=== PATIENT | female | born 1935 | race Caucasian/White ===

== ENCOUNTER → 2016-05-08 | Outpatient (CLI) | payer OTHER ==
[~2016-05-08] MED LIST: ACET65TA OR; ACTO45TA OR; ALBU83IN INH; ASPI81TA45 OR; ASPI81TA85 PO; ATRO0.06 INH; AUGM875T27 PO; AZIT500T2 PO; BENI20TA11 OR; BONIVA PO; CRES5TAB OR; DICL50TA2 PO; DICL75TA PO; DICLOFENAC PO; DONEPEZIL PO; FLEEENE4; FLEEENE4 PR; FLEET; GABA-279 PO; GLIMEPIRIDE PO; HUMA75IN2 SC; HYDR12.55 PO; HYDR25TA6 OR; INSUH10VL SC; INSULANT SC; JANU100T PO; JANUMET PO; KLOR1TAB69 PO; LOSA50TA20 PO; MECL-68 PO; MECL25TA2 OR; MECLOFENAMATE PO; METF500T PO; METO50TA2 PO; MIRALEX PO; MULTCAP PO; NICO14DI3 TD; PAXI40TA OR; PAXI40TA PO; PAXI40TA2 PO; PRED10PA PO; PROA1AER INH; RANI15TA PO; SENO8.6T5 OR; SOMA350T OR; SOMA350T PO; TRAM50TA2 OR; TRAM50TA2 PO; ZANT150T OR; [UNRECOGNIZED DRUG - OTHER] PO
--- NOTE | 2016-05-08 11:48 | REP ---
Clinical: Cough. Rule out pneumonia. Technique: PA and lateral. Comparison: 12/24/2014. Findings: Mediastinum and cardiac silhouette are normal. Lung cruz demonstrate chronic interstitial changes and superimposed basilar atelectasis cannot be excluded. No discrete focal consolidation, effusion, or pneumothorax. Skeletal structures demonstrate age-related osteopenia and degenerative changes. Impression: Chronic changes. Cannot exclude trace basilar atelectasis. Signed by Baldomero Canela MD 05/08/2016 11:40 A
--- NOTE | 2016-05-08 11:49 | REP ---
Clinical: Trauma. Technique: Multiple views of the right hemithorax. Findings: Multiple views of the right hemithorax demonstrates no obvious acute rib fracture or pathology. A 1 cm nodule in the right lower lobe cannot be excluded and may warrant chest CT follow-up. Impression: Normal right ribs. Cannot exclude 1 cm right lower lobe nodule. Chest CT follow-up should be considered. Signed by Baldomero Canela MD 05/08/2016 11:41 A
== END ==
LOC: M RAD 11:13
PROVIDERS: ATTEND Nurse Practitioner Family
DX: R05 Cough (principal)

== ENCOUNTER 2016-06-28 19:52 | Emergency (ER) | payer OTHER ==
[~2016-06-28] VITALS: Ht 162.6 cm; Wt 96.2 kg
[2016-06-28] MEDS ORDERED: OMEP40CA2 PO (20:22)
[2016-06-28] MEDS ORDERED: ALBU83IN INH (20:22)
[2016-06-28] MEDS ORDERED: NOVOINJ3 SC (20:22)
[2016-06-28] MEDS ORDERED: HYDR50TAB PO (20:22)
--- NOTE | 2016-06-28 21:00 | REPUSA ---
HISTORY: Trauma. TECHNIQUE: Multiple thin section helically-acquired axially-displayed and helically acquired coronall y displayed computed tomographic images of the face are obtained from the mandible through the fronta l sinuses, with images obtained at soft tissue and bone window. 2D reformatted images were performed. FINDINGS: Left periorbital swelling/hematoma is noted. Normal bony mineralization. No fractures. Normal orbits. Normal, clear paranasal sinuses. Normal oral and nasal cavities. Normal infratemporal fossa and deep parapharyngeal spaces with normal muscles of mastication. Normal parotid and submandibular glands. IMPRESSION: Left periorbital swelling/hematoma. No fracture. Thank you for your kind referral of this patient
--- NOTE | 2016-06-28 21:00 | REPUSA ---
CLINICAL HISTORY: Trauma. TECHNIQUE: Multiple axial CT images were obtained through the brain without IV contrast material. COMMENTS: Left periorbital swelling/hematoma is noted. There is normal configuration of sella turcica. There are no intra or extra-axial collections. There is no mass effect or midline shift. There is no evidence of hematoma formation. No hydrocephalus is p resent. The ventricles are symmetrical. No abnormal calcifications are present. There is diffuse age-appropriate cerebellar and cerebral atrophy with proportionally dilated ventricl es and cortical sulci. There are bilateral periventricular and subcortical white matter hypolucencies compatible with mild c hronic microvascular disease. Otherwise, no significant focal abnormalities are seen either in the posterior fossa or supratentoria l compartment. IMPRESSION: 1. Age-appropriate cerebellar and cerebral atrophy. 2. Mild chronic microvascular disease. 3. No evidence of acute intracranial pathology. 4. Left periorbital swelling/hematoma. Thank you for your kind referral of this patient.
[2016-06-28 22:03] LABS: BASO % 0.3 % (0.0-1.0); EOS # 0.2 K/mm3 (0.0-0.50); EOS % 1.7 % (0.0-3.0); LARGE UNSTAINED CELL # 0.2 K/mm3 (0.0-0.4); LARGE UNSTAINED CELL % 1.6 % (0.0-4.0); LYMPH # 2.1 K/mm3 (1.5-4.5); LYMPH % 18.3 % (24.0-44.0); MEAN CORPUSCULAR HEMOGLOBIN 30.9 pg (27.0-33.0); MEAN CORPUSCULAR HGB CONC 33.7 g/dl (32.0-36.5); MEAN CORPUSCULAR VOLUME 91.9 fl (80.0-96.0); MONO # 0.4 K/mm3 (0.0-0.8); MONO % 3.2 % (0.0-5.0); NEUTROPHILS # 8.6 K/mm3 (1.8-7.7); NEUTROPHILS % 74.8 % (36.0-66.0); PLATELET COUNT, AUTOMATED 244 k/mm3 (150-450); RED CELL DISTRIBUTION WIDTH 13.7 % (11.5-14.5); WHITE BLOOD COUNT 11.4 K/mm3 (4.0-10.0)
[2016-06-28 22:29] LABS: ALBUMIN 2.8 GM/DL (3.2-5.2); ALBUMIN/GLOBULIN RATIO 0.76 (1.00-1.93); ALKALINE PHOSPHATASE 148 U/L (45-117); ALT/SGPT 14 U/L (12-78); AMYLASE 21 U/L (25-115); ANION GAP 9 MEQ/L (8-16); AST/SGOT 11 U/L (15-37); BILIRUBIN,DIRECT 0.1 MG/DL (0.0-0.2); BILIRUBIN,TOTAL 0.6 MG/DL (0.2-1.0); BLOOD UREA NITROGEN 16 MG/DL (7-18); CARBON DIOXIDE LEVEL 31 MEQ/L (21-32); CHLORIDE LEVEL 96 MEQ/L (98-107); CREATININE FOR GFR 0.94 MG/DL (0.55-1.02); GLOMERULAR FILTRATION RATE > 60.0 (>32); GLUCOSE, FASTING 268 MG/DL (83-110); SODIUM LEVEL 136 MEQ/L (136-145); TOTAL PROTEIN 6.5 GM/DL (6.4-8.2)
[2016-06-28] MEDS ORDERED: BACT800T5 PO (22:42)
[2016-06-28] MEDS ORDERED: BACTRIM 160MG/800MG DS TAB PO ONE (22:45)
[2016-06-28 22:47] VITALS: BP 122/76
== END 2016-06-28 23:10 | disposition home or self-care (01) ==
LOC: EDBD 19:52 → EDSEX 19:52 → M ED 21:31
DX: S00.83XA Contusion of other part of head, initial encounter (principal); W01.198A Fall on same level from slipping, tripping and stumbling with subsequent striking against other object, initial encounter; Y92.002 Bathroom of unspecified non-institutional (private) residence as the place of occurrence of the external cause; Y93.01 Activity, walking, marching and hiking; Y99.8 Other external cause status; N39.0 Urinary tract infection, site not specified; H11.32 Conjunctival hemorrhage, left eye; I10 Essential (primary) hypertension; E11.9 Type 2 diabetes mellitus without complications; J44.9 Chronic obstructive pulmonary disease, unspecified; K21.9 Gastro-esophageal reflux disease without esophagitis; M81.0 Age-related osteoporosis without current pathological fracture; F33.9 Major depressive disorder, recurrent, unspecified; Z79.899 Other long term (current) drug therapy; Z79.82 Long term (current) use of aspirin; Z79.4 Long term (current) use of insulin; Z88.8 Allergy status to other drugs, medicaments and biological substances

== ENCOUNTER → 2016-07-07 | Outpatient (CLI) | payer OTHER ==
[~2016-07-07] MED LIST changes: +BACT800T5 PO; +HYDR50TAB PO; +NOVOINJ3 SC; +OMEP40CA2 PO
--- NOTE | 2016-07-07 16:42 | REP ---
Right hand series: Four views: History: Contusion. Pain and swelling after fall. Findings: Four views right hand demonstrate diffuse osteopenia. No fracture or subluxation is seen. Impression: No fracture noted. Signed by Heath Guzman MD 07/07/2016 07:20 P
--- NOTE | 2016-07-07 16:43 | REP ---
Right wrist series: Four views. History: Contusion of the arm in a fall. Findings: Four views right wrist demonstrate overall decreased mineralization. There is minimal osteoarthritic spurring at the first SNF articulation. No fracture or subluxation is seen. Impression: No fracture noted. Signed by Heath Guzman MD 07/07/2016 07:20 P
--- NOTE | 2016-07-07 16:45 | REP ---
RIGHT ELBOW COMPLETE: 07/07/2016. Comparison right humerus 08/25/2010. Four views of the elbow are provided. There is no evidence of a joint effusion. There is soft tissue calcification about the lateral epicondyle consistent with lateral epicondylitis. No evidence of a joint effusion. There may be a small calcification at the triceps insertion, but no avulsion. Radial head without a fracture; distal humerus without a fracture. The olecranon intact. Impression: 1. No evidence of fracture or joint effusion. There is epicondylitis about the lateral epicondyle. Signed by Teodoro Rai MD 07/07/2016 05:15 P
--- NOTE | 2016-07-07 16:46 | REP ---
Right hip: Two views: History: Contusion. Findings: AP and frog-leg views of the right hip show diffuse osteoporosis. Vascular calcification is seen. The right nayana pelvis as a normal as visualized. No hip fracture is appreciated. Femoral head is smooth and rounded. Impression: No fracture seen. Signed by Heath Guzman MD 07/07/2016 07:20 P
--- NOTE | 2016-07-07 16:46 | REP ---
RIGHT FOREARM SERIES, COMPLETE: 07/07/2016. Clinical history: Pain and swelling after a fall. Forearm contusion. Comparison: Right elbow series and wrist series this date. Findings: The two-views show soft tissue swelling mid to distal forearm, particularly dorsally. No fracture of the radius or ulna. Radial head capitellum align normally. There is calcification at the insertion of the triceps tendon. Epicondylitis with soft tissue calcification about the lateral epicondyle noted. No acute fracture evident. Signed by Teodoro Rai MD 07/07/2016 05:15 P
== END ==
LOC: M LRY 15:20
PROVIDERS: ATTEND Physician Assistant
DX: S40.021A Contusion of right upper arm, initial encounter (principal); S70.01XA Contusion of right hip, initial encounter; S50.811A Abrasion of right forearm, initial encounter; M77.11 Lateral epicondylitis, right elbow; Y92.008 Other place in unspecified non-institutional (private) residence as the place of occurrence of the external cause; Y93.9 Activity, unspecified; Y99.9 Unspecified external cause status; X58.XXXA Exposure to other specified factors, initial encounter
CPT/HCPCS: 36415; 73080; 73090; 73110; 73130; 73502; 80048; G0463

== ENCOUNTER → 2016-07-07 | Outpatient (CLI) | payer OTHER ==
[2016-07-07 20:35] LABS: CALCIUM LEVEL 8.9 MG/DL (8.8-10.2); CREATININE FOR GFR 1.18 MG/DL (0.55-1.02); GLOMERULAR FILTRATION RATE 46.9 (>32)
== END ==
LOC: M LRY 15:13
PROVIDERS: ATTEND Nurse Practitioner Family
DX: I10 Essential (primary) hypertension (principal); E11.9 Type 2 diabetes mellitus without complications

== ENCOUNTER 2016-09-10 11:27 | Inpatient (IN) | payer OTHER ==
[~2016-09-10] VITALS: Ht 162.6 cm; Wt 92.7 kg
[2016-09-10] MEDS ORDERED: OMEP40CA2 PO (11:43)
[2016-09-10] MEDS ORDERED: PROBCAP4 PO (11:43)
[2016-09-10] MEDS ORDERED: NOVOINJ2 SC (11:43)
[2016-09-10] MEDS ORDERED: CIPR500T89 PO (11:43)
--- NOTE | 2016-09-10 12:34 | REP ---
Clinical: Altered mental status . Comparison: 05/08/2016 . Findings: The mediastinum and cardiac silhouette are stable and within normal limits for portable technique. The lung cruz are clear without acute consolidation, effusion, or pneumothorax. Skeletal structures are intact. Impression: Normal portable chest x-ray Signed by Baldomero Canela MD 09/10/2016 12:25 P
[2016-09-10 12:53] LABS: BASO # 0.1 K/mm3 (0.0-0.2); BASO % 0.8 % (0.0-1.0); EOS # 0.1 K/mm3 (0.0-0.50); EOS % 1.3 % (0.0-3.0); LARGE UNSTAINED CELL # 0.1 K/mm3 (0.0-0.4); LARGE UNSTAINED CELL % 1.6 % (0.0-4.0); LYMPH % 22.5 % (24.0-44.0); MEAN CORPUSCULAR HEMOGLOBIN 31.5 pg (27.0-33.0); MEAN CORPUSCULAR HGB CONC 31.7 g/dl (32.0-36.5); MEAN CORPUSCULAR VOLUME 99.5 fl (80.0-96.0); MONO # 0.4 K/mm3 (0.0-0.8); MONO % 5.4 % (0.0-5.0); NEUTROPHILS # 5.6 K/mm3 (1.8-7.7); NEUTROPHILS % 68.4 % (36.0-66.0); PLATELET COUNT, AUTOMATED 317 k/mm3 (150-450); RED CELL DISTRIBUTION WIDTH 13.4 % (11.5-14.5); WHITE BLOOD COUNT 8.2 K/mm3 (4.0-10.0)
[2016-09-10 13:15] LABS: ALBUMIN 2.1 GM/DL (3.2-5.2); ALBUMIN/GLOBULIN RATIO 0.49 (1.00-1.93); BILIRUBIN,DIRECT 0.1 MG/DL (0.0-0.2); BILIRUBIN,TOTAL 0.3 MG/DL (0.2-1.0); CALCIUM LEVEL 8.5 MG/DL (8.8-10.2); CREATININE FOR GFR 1.16 MG/DL (0.55-1.02); GLOMERULAR FILTRATION RATE 47.7 (>32); POTASSIUM SERUM 4.6 MEQ/L (3.5-5.1); TOTAL PROTEIN 6.4 GM/DL (6.4-8.2)
[2016-09-10] MEDS ORDERED: ACETAMINOPHEN TAB 650MG DOSE (2X325MG) PO ONE (13:15)
--- NOTE | 2016-09-10 16:18 | REP ---
Clinical: Abdominal pain. Findings: The right kidney demonstrates edematous enlargement, mild hydronephrosis, and perinephric/periureteral stranding without nephroureterolithiasis or obstructing calculus. Findings suggest pyelonephritis and correlation with physical examination and urinalysis is recommended. The left kidney/ureter and bladder are normal. Liver, spleen, pancreas, and bilateral adrenal glands are normal. The patient is status post cholecystectomy. The enteric system is without obstruction or acute inflammatory process. Colonic diverticula noted without acute diverticulitis. Pelvis demonstrates normal bladder and age-appropriate uterus/adnexa. No ascites. No significant adenopathy. No free air. Atherosclerotic changes to the vasculature noted without aneurysm. Musculoskeletal structures demonstrate degenerative changes without focal osseous abnormality. Lung bases clear. Impression: 1. Changes involving the right kidney as described above most compatible with pyelonephritis. Correlation with urinalysis and physical examination recommended. 2. Scattered diverticula without acute diverticulitis. 3. Chronic changes as described above and no evidence for further acute abdominopelvic pathology. Signed by Baldomero Canela MD 09/10/2016 01:46 P
[2016-09-10] MEDS ORDERED: cefTRIAXone SOD 1 GM in D5W MINI-BAG PLUS 50 ML IV ONE (17:45)
[2016-09-10] MEDS ORDERED: cefTRIAXone SOD 1 GM VIAL (J0696) IM ONE (17:45)
[2016-09-10] MEDS ORDERED: METF500T PO (18:27)
[2016-09-10] MEDS ORDERED: METO-207 PO (18:27)
[2016-09-10] MEDS ORDERED: CIPR250T3 PO (18:27)
[2016-09-10] MEDS ORDERED: BISACODYL 5 MG TAB PO PRN (18:45)
[2016-09-10] MEDS ORDERED: PERCOCET 5MG/325MG TAB PO PRN (18:45)
[2016-09-10] MEDS ORDERED: MORPHINE 2 MG/ML 1ML SYRINGE IV PRN (18:45)
[2016-09-10] MEDS ORDERED: ONDANSETRON 4MG/2ML VIAL (J2405) IV PRN (18:45)
[2016-09-10] MEDS ORDERED: ACETAMINOPHEN TAB 650MG DOSE (2X325MG) PO PRN (18:45)
[2016-09-10] MEDS ORDERED: GLUCOSE 4 GM CHEW TABLET PO PRN (19:00)
[2016-09-10] MEDS ORDERED: DEXTROSE 50% 50 ML SYRINGE IV PRN (19:00)
[2016-09-10] MEDS ORDERED: ALBUTEROL SULFATE 2.5 MG/0.5 ML INH NEB SOLN INH PRN (19:00)
[2016-09-10] MEDS ORDERED: GLUCAGON FOR INJ 1 MG VIAL (J1610) SC PRN (19:00)
[2016-09-10] MEDS ORDERED: METOCLOPRAMIDE INJ 10MG/2ML VIAL (J2765) IV ONE (20:15)
[2016-09-10] MEDS ORDERED: KETOROLAC 30 MG/ML VIAL (J1885) IV ONE (20:15)
[2016-09-10] MEDS ORDERED: diphenhydrAMINE INJ 50MG/ML VIAL (J1200) IV ONE (20:15)
[2016-09-10] MEDS ORDERED: ACETAMINOPHEN 500 MG TAB PO PRN (20:15)
[2016-09-10] MEDS ORDERED: dexameTHASONE 4 MG/ML 1ML VIAL (J1100) IV ONE (20:15)
[2016-09-10] MEDS ORDERED: dexameTHASONE 20 MG/5 ML VIAL (J1100) IV ONE (20:15)
[2016-09-10 20:35] VITALS: BP 146/69
[2016-09-10] MEDS: NovoLOG MIX 70/30 PER UNIT SC SCH (21:00)
[2016-09-10] MEDS: NS 1,000 ML IV SCH (21:01)
[2016-09-10] MEDS: HEPARIN SOD (PORCINE) 5000 UNITS/ML VIAL SQ SCH (21:39)
[2016-09-10] MEDS: GABAPENTIN 100 MG CAP PO SCH (21:40)
[2016-09-10] MEDS: LACTOBACILLUS ACIDOPHILUS CAP (BACID) PO SCH (21:40)
[2016-09-10] MEDS: HumaLOG INSULIN (NovoLOG) PER UNIT SC SCH (21:40)
[2016-09-10] MEDS: METOPROLOL SUCC (TopROL XL) 50MG **XL** TAB PO SCH (21:40)
[2016-09-11] MEDS: cefTRIAXone SOD 1 GM in D5W MINI-BAG PLUS 50 ML IV SCH ×2 (05:56→17:00)
[2016-09-11] MEDS: HEPARIN SOD (PORCINE) 5000 UNITS/ML VIAL SQ SCH ×3 (05:56→21:40)
[2016-09-11 06:00] VITALS: BP 152/80
[2016-09-11 07:58] LABS: BASO % 0.1 % (0.0-1.0); EOS % 0.4 % (0.0-3.0); LARGE UNSTAINED CELL % 0.7 % (0.0-4.0); LYMPH % 17.9 % (24.0-44.0); MEAN CORPUSCULAR HEMOGLOBIN 32.1 pg (27.0-33.0); MEAN CORPUSCULAR VOLUME 100.3 fl (80.0-96.0); MONO # 0.1 K/mm3 (0.0-0.8); MONO % 1.7 % (0.0-5.0); NEUTROPHILS # 4.5 K/mm3 (1.8-7.7); NEUTROPHILS % 79.3 % (36.0-66.0); PLATELET COUNT, AUTOMATED 326 k/mm3 (150-450); RED CELL DISTRIBUTION WIDTH 13.2 % (11.5-14.5); WHITE BLOOD COUNT 5.6 K/mm3 (4.0-10.0)
--- NOTE | 2016-09-11 08:01 | ECGEPIP ---
Stationary ECG Study [facility] - ED Test Date: 2016-09-10 Pat Name: ODELL CARRION Department: Room: - Gender: F Superintendent Job: gypsy : 1935 Requested By: CATE Hester Order Number: [id number] Reading MD: Paris Olivarez Measurements Intervals Leonard Rate: 65 P: 10 TX: 124 QRS: 26 QRSD: 74 T: 48 QT: 371 QTc: 386 Interpretive Statements SINUS RHYTHM NSTTW ABNORMALITY Electronically Signed On 09-11-2016 8:00:55 EDT by Paris Olivarez
[2016-09-11 08:09] LABS: ALBUMIN/GLOBULIN RATIO 0.39 (1.00-1.93); BILIRUBIN,TOTAL 0.2 MG/DL (0.2-1.0); CALCIUM LEVEL 8.3 MG/DL (8.8-10.2); CREATININE FOR GFR 1.02 MG/DL (0.55-1.02); GLOMERULAR FILTRATION RATE 55.4 (>32); MAGNESIUM LEVEL 1.6 MG/DL (1.8-2.4); POTASSIUM SERUM 4.4 MEQ/L (3.5-5.1); TOTAL PROTEIN 7.1 GM/DL (6.4-8.2)
[2016-09-11] MEDS: PARoxetine 20 MG TAB PO SCH (08:23)
[2016-09-11] MEDS: GABAPENTIN 100 MG CAP PO SCH ×2 (08:23→20:34)
[2016-09-11] MEDS: ASPIRIN 81 MG ENTERIC TAB PO SCH (08:23)
[2016-09-11] MEDS: OMEPRAZOLE 20 MG CAP PO SCH (08:23)
[2016-09-11] MEDS: HumaLOG INSULIN (NovoLOG) PER UNIT SC SCH ×4 (08:25→21:41)
[2016-09-11] MEDS: NS 1,000 ML IV SCH (08:25)
[2016-09-11] MEDS: NovoLOG MIX 70/30 PER UNIT SC SCH ×2 (08:25→21:41)
[2016-09-11] MEDS: traMADol 50 MG TAB PO PRN ×2 (08:36→20:35)
[2016-09-11] MEDS ORDERED: PANTOPRAZOLE 40MG INJ (PROTONIX) (C9113) IV SCH (09:00)
[2016-09-11 14:00] VITALS: BP 164/70
[2016-09-11] MEDS ORDERED: MAG SULF 1GM/100ML (MAG RUN) 1 GM in APPROPRIATE DILUENT 1 EA IV ONE (14:00)
--- NOTE | 2016-09-11 15:24 | HPE ---
DATE OF ADMISSION: 09/10/2016 PRIMARY CARE PROVIDER: Conchita Gorman NP CHIEF COMPLAINT: Multiple episodes of diarrhea, abdomen discomfort, and headache. HISTORY OF PRESENT ILLNESS: Ms. Ferrell is an 81-year-old female who was brought to the emergency room (ER) by her daughter and her son-in-law due to experiencing multiple episodes of diarrhea, upset stomach, as well as abdominal discomfort and headache. According to patient's daughter, about 2 weeks ago she developed vomiting and they brought patient to [facility], where she was diagnosed with colitis and urinary tract infection (UTI). Patient was discharged with Cipro; however, since being discharged, patient continued to have diarrhea and her diarrhea became worse as well as headache and nausea. However, patient did not have any episode of vomiting. Patient also has decreased appetite. Only on Thursday, patient ate three times a day; however, since then, patient only eats once or twice a day. Patient denies having fever, chills, or night sweats. Patient also denies hematochezia or melena. However, patient expressed that her diarrhea is liquid and she has not seen any formed stool. PAST MEDICAL HISTORY: 1. Diabetes. 2. Obesity. 3. Hypertension. 4. Anxiety. 5. Depression. 6. Osteoporosis. 7. Osteoarthritis. 8. Chronic obstructive pulmonary disease (COPD). ALLERGIES: QUINOLONES. PAST SURGICAL HISTORY: 1. Left hip replacement 2011. 2. Cholecystectomy. 3. Bilateral carpal tunnel. SOCIAL HISTORY: Patient lives with her daughter and her son-in-law. Patient started smoking at age 12; however, 5 years ago, patient stopped smoking. Patient expressed that she smoked about 1-1/2 pack per day. Several years ago, patient was drinking alcohol occasionally. Patient denies history of illicit drug use. Patient does not have pets. Patient has two daughters and two sons, who are healthy for age. FAMILY HISTORY: Patient had one brother and six sisters who due to colorectal cancer, heart diseases. HOME MEDICATIONS: - albuterol sulfate 2.5 mg inhalation (INH) as needed shortness of breath and cough - aspirin 81 mg by mouth daily - ciprofloxacin 250 mg by mouth twice a day - gabapentin 100 mg by mouth twice a day - insulin aspart 50 units subcutaneously (SC) twice a day - Probiotic one capsule by mouth nightly - losartan potassium 50 mg by mouth daily - metformin 500 mg by mouth twice a day - metoprolol succinate 50 mg by mouth nightly - multivitamins one capsule by mouth daily - omeprazole 40 mg by mouth daily - Paxil 40 mg by mouth daily - tramadol 50 mg by mouth every 6 hours as needed pain REVIEW OF SYSTEMS: GENERAL: Patient denies fever, chills, night sweats, weight loss, weight gain. HEENT: Patient expressed that she has experienced lightheadedness when she stands up from a sitting position. However, patient denies acute vision or hearing changes. Patient also experienced some headache. Patient also denies having problem with chewing food or sinusitis. NECK: Patient denies lumps, bumps, or decreased range of motion of her neck. CHEST: Patient denies palpitation, racing or skipping heartbeat, or chest pain. LUNGS: Patient denies shortness of breath or coughing. ABDOMEN: Patient expressed that she has been experiencing abdominal discomfort. Patient has diarrhea; however, patient denies hematochezia or melena. Patient has been experiencing nausea; however, patient denies vomiting. NEUROLOGICAL: Patient denies history of transient ischemic attack (TIA), cerebrovascular accident (CVA), or seizure-type activities. PHYSICAL EXAMINATION: VITALS: Temperature 97.1, pulse 69, respiratory rate 20, blood pressure 143/65, pulse oximetry 94% on room air. GENERAL APPEARANCE: Patient was lying in bed, in no acute distress. Patient was awake, alert, and oriented to time, place, and person. HEENT: Normocephalic, atraumatic. Pupils are equal, reactive to light. Oral mucosa is moist. NECK: Soft, supple. No lymphadenopathy or thyromegaly. HEART: Regular rate and rhythm. Normal S1, S2. ABDOMEN: Soft. Tender to palpation mostly on the lower abdominal quadrant. Positive bowel sounds in all quadrants. No guarding or rebound. Obese. LUNGS: Clear breath sounds bilaterally. Good air movement. NEUROLOGICAL: Cranial nerves II-XII was intact. No focal deficiencies. EXTREMITIES: Patient has mild pitting edema in both lower extremities. +2 pulses in both lower extremities. Feet were warm. Normal range of motion in both upper and lower extremities. Patient also has normal strength in both upper and lower extremities (5 out of 5). LABORATORY DATA: White blood cells 8.2, red blood cells 4.17, hemoglobin 13.1, hematocrit 41.7, MCV 99.5, MCH 31.5, MCHC 31.7, RDW 13.4, platelet count 317, neutrophil percentage 68.4, lymphocyte percentage 22.5, monocyte percentage 5.4, eosinophil percentage 1.3, basophil percentage 0.8, leukocyte percentage 1.6. Sodium 135, potassium 4.6, chloride 96, carbon dioxide 34, anion gap 5, BUN 11, creatinine 1.16, glomerular filtration rate 47.7, fasting glucose 253, lactic acid 1.7, calcium 8.5, total bilirubin 0.3, direct bilirubin 0.1, AST 9, ALT 14, alkaline phosphatase 236, ammonia 26, total protein 6.4, albumin 2.1. UA: Urine color yellow. Urine appearance hazy. Urine pH 6. Urine specific gravity 1.011. Urine protein negative. Urine glucose 3+. Urine ketones negative. Urine blood 1+. Urine nitrite negative. Urine bilirubin negative. Urine urobilinogen 0.2. Urine leukocyte esterase 3+. Urine white blood cells 95. Urine red blood cells 14. Urine hyaline casts 0. Urine bacteria 2+. Urine squamous epithelial cell 1. Blood culture is pending. IMAGES: Chest x-ray shows normal portable chest x-ray. CT of abdomen and pelvis without contrast shows changes involving the right kidney as possibility for pyelonephritis. Also, scattered diverticula without acute diverticulitis. Chronic changes. However, no evidence of further acute abdominopelvic pathology. ASSESSMENT AND PLAN: 1. Pyelonephritis. Urinalysis (UA) has high possibility for UTI. However, the urine culture is pending at this time. Also, blood culture is pending at this time. Patient is on intravenous (IV) fluid. 2. Hyponatremia. This is possibly secondary to hyper secondary to gastrointestinal (GI) loss versus acute kidney injury. I have started patient on normal saline IV fluid. We will recheck the sodium again tomorrow. 3. Acute kidney injury. This is secondary to dehydration and due to GI loss. Patient is on IV fluid, and we will recheck the urine. We will check the kidney function also. At home, patient is on metformin, losartan, and ciprofloxacin; however, we have stopped this medication due to adverse affect on the kidney, and we will continue monitoring patient for any abnormal symptoms. 4. Diabetes. At this point, we will continue patient on sliding scale, consistent-carbohydrate diet, as well as insulin aspart 50 units SC twice a day. 5. Diabetic neuropathy. Patient is on gabapentin 100 mg by mouth daily. 6. Hypertension. At home, patient was on losartan potassium 50 mg by mouth daily; however, we have held this medication due to kidney function. Patient's blood pressure is stable at this time. We will continue monitoring patient for any abnormal symptoms. We will continue patient on Toprol 50 mg nightly by mouth. 7. Depression. Patient is on Paxil. 8. Osteoarthritis. We will continue patient on home medication, which includes Ultram 50 mg every 6 hours by mouth as needed pain. Patient is also on gabapentin. 9. Deep venous thrombosis (DVT) prophylaxis. We will continue patient on heparin subcutaneously 5000 every 8 hours. 10. Gastroesophageal reflux disease (GERD). Patient is on omeprazole 40 mg by mouth daily. 11. COPD. Will continue patient on breathing treatment and oxygen saturation between 88 to 92; however, at this time, patient is stable. My preceptor for this patient encounter was Dr. Heather Ware. The preceptor was physically present in the building during the encounter and was fully available. As needed, all aspects of the patient interview, examination, medical decision making process, and medical care plan development were reviewed and approved by the preceptor. The preceptor is aware and concurs with the plan as stated in the body of this note and will attest to such by his/her cosignature.
[2016-09-11] MEDS: LACTOBACILLUS ACIDOPHILUS CAP (BACID) PO SCH (20:34)
[2016-09-11 21:40] VITALS: BP 157/82
[2016-09-11] MEDS: METOPROLOL SUCC (TopROL XL) 50MG **XL** TAB PO SCH (21:40)
[2016-09-11 22:00] VITALS: BP 157/82
--- NOTE | 2016-09-11 22:32 | IPN ---
DATE: 09/11/2016 SUBJECTIVE: Ms. Ferrell is an 81-year-old female who was seen and examined at the bedside. Patient denies chest pain, orthopnea, paroxysmal nocturnal dyspnea (PND). Patient also denies nausea, vomiting, diarrhea, or constipation. Patient denies abdominal pain. Patient expressed that she has been making urine, and patient denies dysuria or hematuria. OBJECTIVE: VITAL SIGNS: Temperature 96.9, pulse 70, respiratory rate 18, blood pressure 152/80, pulse oximetry 94 on room air. Total intake 50, total output 200. GENERAL APPEARANCE: Patient was lying in bed in no acute distress. Patient was awake, alert, and oriented to time, place, and person. HEENT: Normocephalic, atraumatic. Pupils are equal and reactive to light. Oral mucosa is moist. NECK: Soft, supple. No lymphadenopathy. No thyromegaly. No jugular venous distention (JVD). HEART: Regular rate and rhythm. Normal S1, S2. ABDOMEN: Soft and nontender. Positive bowel sounds in all quadrants. LUNGS: Clear breath sounds bilaterally. Good air movement. EXTREMITIES: Patient has lower extremity edema, +2 pulses in both lower extremities. Feet are warm. Normal range of motion, both upper and lower extremities. LABORATORY DATA: White blood cells 5.6, red blood cells 4.03, hemoglobin 12.9, hematocrit 40.4, MCV 100.3, MCH 32.1, MCHC 32, RDW 13.2, platelet count 326, neutrophil percentage 79.3, lymphocyte percentage 17.9, monocyte percentage 1.7, eosinophil percentage 0.4, basophil percentage 0.1, leukocyte percentage 0.7. Sodium 137, potassium 4.4, chloride 100, carbon dioxide 29, anion gap 8, BUN 12, creatinine 1.02, glomerular filtration rate 55.4, fasting glucose 202, calcium 88.3, magnesium 1.6. Total bilirubin 0.2, AST 12, ALT 10, alkaline phosphatase 193, total protein 7.1, albumin 2. Blood culture is pending. Urine culture is pending. ASSESSMENT AND PLAN: 1. Pyelonephrosis. At this time, patient is on ceftriaxone. Urinalysis (UA) indicated of urinary tract infection (UTI); however, urine culture is pending. Also blood culture is pending. At this time will continue with the current medication. 2. Acute kidney injury. Patient's renal function is back to baseline. Patient was on intravenous (IV) fluid; however, I have stopped IV fluid. Patient was also on Cipro, losartan, and metformin; however, we held these medications due to abnormal renal function. Will continue to monitor patient for any abnormal symptoms. 3. Hyponatremia. This is possibly hypovolemic in nature. Due to dehydration from gastrointestinal (GI) loss, patient was on normal saline; however, we have stopped this medication at this time. We will continue to monitor patient for any abnormal symptoms. It has resolved. 4. Diabetes. We will continue patient on sliding scale. At home patient was on metformin; have we have stopped this medication due to acute kidney injury (AYLIN). 5. Hypertension. Patient was on losartan; however, we have stopped this medication. Patient's blood pressure is controlled. We will continue patient on metoprolol. 6. Depression. Patient is on Paxil. 7. Gastroesophageal reflux disease (GERD). Patient is on omeprazole. 8 Diabetic neuropathy. Patient is on gabapentin. 9. Chronic obstructive pulmonary disease (COPD). Patient is on breathing treatment. 10. Osteoporosis. Patient is on Ultram. 11. Deep vein thrombosis (DVT) prophylaxis. Patient is on heparin. My preceptor for this patient encounter was Dr. Bettye Strauss. The preceptor was physically present in the building during the encounter and was fully available as needed. All aspects of the patient interview, examination, medical decision making process, and medical care plan development were reviewed and approved by the preceptor. The preceptor is aware and concurs with the plan as stated in the body of this note and will attest to such by his/her co-signature.
[2016-09-12] MEDS: HEPARIN SOD (PORCINE) 5000 UNITS/ML VIAL SQ SCH (05:41)
[2016-09-12] MEDS: cefTRIAXone SOD 1 GM in D5W MINI-BAG PLUS 50 ML IV SCH (05:41)
[2016-09-12 06:00] VITALS: BP 149/67
[2016-09-12 06:27] LABS: BASO % 0.3 % (0.0-1.0); EOS # 0.1 K/mm3 (0.0-0.50); EOS % 1.1 % (0.0-3.0); LARGE UNSTAINED CELL # 0.1 K/mm3 (0.0-0.4); LARGE UNSTAINED CELL % 1.2 % (0.0-4.0); LYMPH # 2.1 K/mm3 (1.5-4.5); LYMPH % 26.3 % (24.0-44.0); MEAN CORPUSCULAR HEMOGLOBIN 31.6 pg (27.0-33.0); MEAN CORPUSCULAR HGB CONC 31.8 g/dl (32.0-36.5); MEAN CORPUSCULAR VOLUME 99.2 fl (80.0-96.0); MONO # 0.4 K/mm3 (0.0-0.8); NEUTROPHILS # 5.3 K/mm3 (1.8-7.7); PLATELET COUNT, AUTOMATED 327 k/mm3 (150-450); RED CELL DISTRIBUTION WIDTH 13.2 % (11.5-14.5)
[2016-09-12 06:58] LABS: ALBUMIN/GLOBULIN RATIO 0.42 (1.00-1.93); BILIRUBIN,TOTAL 0.1 MG/DL (0.2-1.0); CALCIUM LEVEL 8.5 MG/DL (8.8-10.2); CREATININE FOR GFR 1.01 MG/DL (0.55-1.02); POTASSIUM SERUM 4.3 MEQ/L (3.5-5.1); TOTAL PROTEIN 6.8 GM/DL (6.4-8.2)
[2016-09-12] MEDS: HumaLOG INSULIN (NovoLOG) PER UNIT SC SCH ×2 (07:30→12:15)
[2016-09-12] MEDS: GABAPENTIN 100 MG CAP PO SCH (08:57)
[2016-09-12] MEDS: OMEPRAZOLE 20 MG CAP PO SCH (08:57)
[2016-09-12] MEDS: traMADol 50 MG TAB PO PRN (08:57)
[2016-09-12] MEDS: ASPIRIN 81 MG ENTERIC TAB PO SCH (08:58)
[2016-09-12] MEDS: PARoxetine 20 MG TAB PO SCH (08:58)
[2016-09-12] MEDS: NovoLOG MIX 70/30 PER UNIT SC SCH (09:00)
[2016-09-12] MEDS ORDERED: DOXY-278 PO (11:53)
--- NOTE | 2016-09-15 07:02 | DSES ---
DATE OF ADMISSION: 09/10/2016 DATE OF DISCHARGE: 09/12/2016 PRIMARY CARE PHYSICIAN: Conchita Wild CONSULTANTS: None. PROCEDURES: None. DISCHARGE MEDICATIONS: - doxycycline 100 mg by mouth every 12 hours for 10 days - albuterol 2.5 mg INH as needed shortness of breath and cough - aspirin 81 mg by mouth daily - gabapentin 100 mg by mouth twice a day - insulin aspart 50 units subcutaneous twice a day - Probiotic one capsule by mouth at bedtime - losartan potassium 50 mg by mouth daily - metformin 500 mg by mouth twice a day - metoprolol succinate 50 mg by mouth at bedtime - multivitamin one capsule by mouth daily - omeprazole 40 mg by mouth daily - Paxil 40 mg by mouth daily - tramadol HCl 50 mg by mouth every 6 hours as needed pain HOSPITAL COURSE: Ms. Ferrell is an 81-year-old female who was admitted to the emergency room (ER) due to multiple episodes of diarrhea and abdominal pain. The patient went to [facility] two weeks ago due to vomiting and the patient was diagnosed with colitis and urinary tract infection and discharged with Cipro. At the time of admission, we did a CT which indicated pyelonephritis. Also, urinalysis (UA) was indicative of urinary tract infection (UTI). Therefore, the patient was started on ceftriaxone. Also, the patient was started on IV fluid due to elevated creatinine level. The patient was on consistent carbohydrates and sliding scale with home insulin. During the hospitalization, the patient did not have any overnight issues. The patient became more stable. At the time of discharge, the patient was medically stable and the patient was discharged home with doxycycline 100 mg by mouth every 12 hours and it was requested that the patient follow with the primary care physician. DISCHARGE DISPOSITION: Home. FOLLOWUP: Please follow up with primary care within one week. ACTIVITY: Activity as tolerated by patient. My preceptor for this patient encounter was Dr. Strauss. The preceptor was physically present in the building during the encounter and was fully available. As needed, all aspects of the patient interview, examination, medical decision making process, and medical care plan development were reviewed and approved by the preceptor. The preceptor is aware and concurs with the plan as stated in the body of this note and will attest to such by his/her cosignature.
== END 2016-09-12 13:32 | disposition home or self-care (01) | DRG 690 ==
LOC: M ED 14:12 → M ED INP 19:17 → M MSPAV 20:26
PROVIDERS: ADMIT Internal Medicine Nephrology; ATTEND Internal Medicine
DX: N10 Acute pyelonephritis (principal); E87.1 Hypo-osmolality and hyponatremia; Z79.82 Long term (current) use of aspirin; Z79.899 Other long term (current) drug therapy; E11.40 Type 2 diabetes mellitus with diabetic neuropathy, unspecified; F41.9 Anxiety disorder, unspecified; F32.9 Major depressive disorder, single episode, unspecified; E66.9 Obesity, unspecified; J44.9 Chronic obstructive pulmonary disease, unspecified; M19.90 Unspecified osteoarthritis, unspecified site; I10 Essential (primary) hypertension; M81.0 Age-related osteoporosis without current pathological fracture; Z88.8 Allergy status to other drugs, medicaments and biological substances; Z87.891 Personal history of nicotine dependence; N17.9 Acute kidney failure, unspecified; K21.9 Gastro-esophageal reflux disease without esophagitis

== ENCOUNTER 2016-09-14 16:52 | Inpatient (IN) | payer OTHER ==
[~2016-09-14] VITALS: Ht 162.6 cm; Wt 91.9 kg
[~2016-09-14 16:52] MED LIST changes: +CIPR250T3 PO; +CIPR500T89 PO; +DOXY-278 PO; +METO-207 PO; +NOVOINJ2 SC; +PROBCAP4 PO
[2016-09-14] MEDS ORDERED: NS 1,000 ML IV ONE (18:00)
[2016-09-14 18:57] LABS: BASO % 0.5 % (0.0-1.0); EOS # 0.2 K/mm3 (0.0-0.50); EOS % 2.3 % (0.0-3.0); LARGE UNSTAINED CELL # 0.1 K/mm3 (0.0-0.4); LARGE UNSTAINED CELL % 1.3 % (0.0-4.0); LYMPH # 1.9 K/mm3 (1.5-4.5); LYMPH % 26.5 % (24.0-44.0); MEAN CORPUSCULAR HEMOGLOBIN 31.3 pg (27.0-33.0); MEAN CORPUSCULAR VOLUME 97.9 fl (80.0-96.0); MONO # 0.4 K/mm3 (0.0-0.8); MONO % 5.8 % (0.0-5.0); NEUTROPHILS # 4.2 K/mm3 (1.8-7.7); NEUTROPHILS % 63.6 % (36.0-66.0); PLATELET COUNT, AUTOMATED 243 k/mm3 (150-450); RED CELL DISTRIBUTION WIDTH 13.4 % (11.5-14.5); WHITE BLOOD COUNT 6.6 K/mm3 (4.0-10.0)
[2016-09-14 19:03] LABS: INR 1.05
[2016-09-14 19:20] LABS: ALBUMIN 2.4 GM/DL (3.2-5.2); ALBUMIN/GLOBULIN RATIO 0.48 (1.00-1.93); ALKALINE PHOSPHATASE 220 U/L (45-117); ALT/SGPT 28 U/L (12-78); ANION GAP 6 MEQ/L (8-16); AST/SGOT 24 U/L (15-37); BILIRUBIN,DIRECT 0.1 MG/DL (0.0-0.2); BILIRUBIN,TOTAL 0.4 MG/DL (0.2-1.0); BLOOD UREA NITROGEN 14 MG/DL (7-18); CALCIUM LEVEL 8.5 MG/DL (8.8-10.2); CARBON DIOXIDE LEVEL 33 MEQ/L (21-32); CHLORIDE LEVEL 91 MEQ/L (98-107); CREATININE FOR GFR 1.13 MG/DL (0.55-1.02); GLOMERULAR FILTRATION RATE 49.2 (>32); GLUCOSE, FASTING 372 MG/DL (83-110); POTASSIUM SERUM 4.2 MEQ/L (3.5-5.1); SODIUM LEVEL 130 MEQ/L (136-145); TOTAL PROTEIN 7.4 GM/DL (6.4-8.2)
--- NOTE | 2016-09-14 20:10 | ECGEPIP ---
Stationary ECG Study [facility] - ED Test Date: 2016-09-14 Pat Name: ODELL CARRION Department: Room: - Gender: F [employer] Fitter: AURELIA : 1935 Requested By: Stone Huertas PA-C Order Number: [id number] Reading MD: Paris Olivarez Measurements Intervals [place] Rate: 69 P: 56 NH: 145 QRS: 14 QRSD: 80 T: 51 QT: 378 QTc: 405 Interpretive Statements SINUS RHYTHM NSTTW ABNORMALITY SIMILAR 09/10/16 Electronically Signed On 09-14-2016 20:10:33 EDT by Paris Olivarez
[2016-09-14] MEDS ORDERED: ONDANSETRON 4MG/2ML VIAL (J2405) IV PRN (20:45)
[2016-09-14] MEDS ORDERED: DEXTROSE 50% 50 ML SYRINGE IV PRN (21:00)
[2016-09-14] MEDS ORDERED: GLUCOSE 4 GM CHEW TABLET PO PRN (21:00)
[2016-09-14] MEDS ORDERED: GLUCAGON FOR INJ 1 MG VIAL (J1610) SC PRN (21:00)
[2016-09-14] MEDS ORDERED: CETI10TA PO (21:09)
[2016-09-14] MEDS ORDERED: DOXY100C PO (21:09)
[2016-09-14] MEDS ORDERED: ALBU17IN INH (21:09)
[2016-09-14] MEDS ORDERED: VITMTA PO (21:11)
[2016-09-14] MEDS ORDERED: BACITAB3 PO (21:11)
[2016-09-14] MEDS ORDERED: HYDR50TAB PO (21:13)
[2016-09-14] MEDS ORDERED: VITA100072 PO (21:13)
[2016-09-14] MEDS ORDERED: FERR325T3 PO (21:13)
[2016-09-14] MEDS ORDERED: DICL75TA PO (21:14)
[2016-09-14] MEDS ORDERED: ALBU83IN INH (21:15)
[2016-09-14] MEDS ORDERED: METOPROLOL TART 50 MG TAB PO ONE (21:45)
[2016-09-14] MEDS ORDERED: PANTOPRAZOLE 40MG INJ (PROTONIX) (C9113) IV ONE (21:45)
[2016-09-14] MEDS ORDERED: ALBUTEROL 90 MCG/ACT 8GM HFA INHALER INH PRN (22:00)
[2016-09-14] MEDS ORDERED: cloNIDine 0.2 MG TAB PO ONE (22:00)
[2016-09-14] MEDS ORDERED: traMADol 50 MG TAB PO PRN (22:00)
--- NOTE | 2016-09-14 22:20 | REPUSA ---
CT of the abdomen and pelvis without contrast Clinical statement: Pain. Technique: Multiple axial CT images were obtained from the base of the lungs to the floor of the pelv is utilizing 5 mm axial slices without administration of contrast. Coronal and sagittal reconstructio ns were also obtained. Comparison: 09/10/2016. Findings: Chest: The visualized lung bases are clear. Abdomen: The right kidney is enlarged, edematous, and inflamed, with perinephric inflammatory changes noted. There is mild right-sided hydronephrosis. There is no evidence of nephrolithiasis. The liver, spleen, pancreas, gallbladder and adrenal glands are unremarkable. The aorta demonstrates normal mary iber and contour. There is no abdominal lymphadenopathy or ascites. Pelvis: The bowel is unremarkable, with no obstructive or inflammatory changes. The appendix is radha l. The urinary bladder is within normal limits. There is no pelvic lymphadenopathy or ascites. The ot her pelvic structures appear unremarkable. Bones: There are no suspicious osseous abnormalities seen. Open reduction internal fixation of the pr oximal left femur is intact. Impression: 1. Worsening edema and inflammation of the right kidney. Stable mild right-sided hydronephrosis. Find ings are suspicious for pyelonephritis. 2. No obstructive or inflammatory bowel changes. 3. The other CT findings are stable.
[2016-09-14] MEDS ORDERED: traMADol 50 MG TAB PO ONE (23:00)
[2016-09-14] MEDS: NITROGLYCERIN 2% OINT 1 GM *U/D* PKT TOP SCH (23:00)
[2016-09-14 23:10] VITALS: BP 133/59
--- NOTE | 2016-09-14 23:12 | HPE ---
DATE OF ADMISSION: 09/14/2016 PRIMARY CARE PROVIDER: Conchita Wild. INPATIENT HOSPITALIST ATTENDING: Dr. Dhaval Umanzor. CHIEF COMPLAINT: Diarrhea, abdominal pain, intractable nausea and vomiting. HISTORY OF PRESENT ILLNESS: This is an 81-year-old female with a history significant for diabetes, hypertension, obesity, anxiety, depression, osteoporosis, osteoarthritis, chronic obstructive pulmonary disease (COPD), recently diagnosed and treated for pyelonephritis and urinary tract infection, colitis at [facility] and [facility] with previous admission on 09/10, discharge on 09/12/2016. The patient continues to have diarrhea about 3-4 times a day, twice at night. She had been having diarrhea since 08/24/2016, initially presented to [facility] Emergency Room where she was admitted. At that time, she was profoundly weak, unable to get off her wheelchair, requiring assistance from the daughter and son-in-law. The patient was admitted to [facility] from 08/24 and stayed for two weeks and treated for colitis. She was discharged the day before Mother's Day and did well at home for two days. She then developed further diarrhea without fever or chills, some abdominal pain and occasional nausea and vomiting. She was seen in the emergency room at [facility] and was admitted for the same complaint. At that time, CT abdomen and pelvis on 09/10 showed pyelonephritis and chronic changes with colonic diverticula without acute diverticulitis. She was admitted subsequently on 09/10 to 09/12, and was given doxycycline for urinary tract infection. Urine culture on 09/10 showed no growth. Since discharge, the patient has been on doxycycline at home, completed two days before presenting back today on 09/14/2016, with persistent symptoms, nausea and vomiting today, 3-4 times daily diarrhea, watery in nature, nonbloody, non-mucousy without fever or chills, with profound weakness. She had been complaining of feeling cold and sleepy at home, prompting the family to bring her back to [facility] for evaluation and potential admission. The patient has not had any weight loss. Last evening, she was able to eat her cheeseburger which was grilled, as well as a little bit of ice cream. They did not know that she was having trouble eating her ice cream. Usually she is a ravenous eater with a good appetite. She was taking her time with the ice cream yesterday and family felt that this was beginning to disturb her abdomen. This morning, she ate half of her breakfast. She ate half her food. She asked for a peanut butter sandwich around lunch time, was able to tolerate this, but developed persistent diarrhea. She has had no prior colonoscopy in the past. No recent travel. No well water at home, and no sick contacts. The patient has been hospitalized twice, one at [facility] in August 24, and another at [facility] in early August. The patient is at high risk for Clostridium (C.) difficile colitis. She was having a white count of 12,000 at [facility], but denies any dysuria, urgency or frequency. No documented fevers or chills. No costovertebral angle tenderness. No dysuria. Denies any hematuria or foul-smelling urine. Again, urine culture on the previous admission on 09/[address] abdomen and pelvis that was performed on 09/10 showed right kidney pyelonephritis. No acute diverticulitis, and chronic changes. She currently has acute kidney injury with a creatinine 1.13, metabolic alkalosis, and hyponatremia, sodium level 130, admitted for dehydration, acute kidney injury secondary to diarrhea. The patient also complains of headache in the occipital area. No chest pain, pressure, tightness, shortness of breath, palpitations, lightheadedness, or near syncope. That has been ongoing since the diarrhea has started. PAST MEDICAL HISTORY: 1. Persistent diarrhea since August 24, 2016. 2. Pyelonephritis. 3. Urinary tract infection. 4. Diabetes. 5. Obesity. 6. Hypertension. 7. Anxiety/depression. 8. Osteoporosis. 9. Osteoarthritis. 10. Chronic obstructive pulmonary disease (COPD). 11. Colitis treated at [facility], August 24, for two weeks. ALLERGIES: QUINOLONES. PAST SURGICAL HISTORY: 1. Left hip replacement 2011. 2. Cholecystectomy. 3. Bilateral carpal tunnel placement. SOCIAL HISTORY: Lives with her daughter and son-in-law. Started smoking at the age of 12. Five years ago quit smoking. Smoked one to 1-1/2 packs of cigarettes. Occasional alcohol use. Denies illicit drug use. No pets. Two daughters, two sons. FAMILY HISTORY: One brother and six sisters who have due to colorectal cancer and heart disease. HOME MEDICATIONS: - albuterol 2.5 mg twice a day as needed, two puffs every four hours as needed for shortness of breath - aspirin 81 mg daily - cetirizine 10 mg daily - vitamin B 12 1000 mcg daily - doxycycline 100 mg every 12 hours - ferrous sulfate 325 daily - gabapentin 100 twice a day - hydrochlorothiazide 50 mg daily - NovoLog mix 70/30 50 subcutaneous twice a day - Bacid one tablet daily - losartan 50 mg daily - metformin twice a day - metoprolol 50 mg daily at bedtime - multivitamin one tablet daily - Prilosec 40 mg daily - Paxil 40 mg daily - tramadol 50 mg every six hours as needed for pain PHYSICAL EXAMINATION: VITAL SIGNS: Temperature 96.6, pulse 71, respiratory rate 18, blood pressure 184/79, 94% on room air. GENERAL: Awake, alert, and oriented times three. HEENT: Pupils equal, round, and reactive to light and accommodation. Extraocular muscles are intact. Normocephalic, atraumatic. Dry mucous membranes. No jugular venous distention. No thyromegaly. No cervical lymphadenopathy or pharyngeal erythema. NECK: Supple. Full range of motion. LUNGS: Clear to auscultation. No wheezes, rales, or rhonchi. Air entry is equal bilaterally. HEART: S1, S2. Sinus rhythm. No murmurs, rubs, or gallops. ABDOMEN: Soft. Slightly tender bilateral lower quadrants. Positive bowel sounds times four quadrants. No rebound, guarding. The patient has no costovertebral angle tenderness. Obese abdomen. EXTREMITIES: Mild pitting edema. Trace bilateral lower extremities. 2+ pulses lower extremities. 5/5 motor strength on four extremities. LABORATORY DATA: White count 6.6, hemoglobin 13, hematocrit 43, platelet count 243. Sodium 130, potassium 4.2, chloride 91, bicarbonate 33, BUN 14, creatinine 1.13, glucose of 372, lactic acid 1.3, calcium 8.5, total bilirubin 0.4, direct bilirubin 0.1, AST 24, ALT 28, alkaline phosphatase 220. Total CK of 25, troponin less than 0.02. Albumin of 2.4, lipase 108. ASSESSMENT AND PLAN: This is an 81-year-old female who has been having diarrhea since August 24, treated for colitis at [facility], and re-presents to [facility] with recent admission on 09/10 to 09/12, treated for pyelonephritis with doxycycline. Urine culture is negative. Now re-presents with 3-4 day history per day of diarrhea, non-mucousy, nonbloody, watery diarrhea and two episodes of diarrhea nightly since 08/24, with profound dehydration, acute kidney injury. No fever or chills. Some bilateral lower quadrant abdominal pain, without dysuria, urgency, frequency. The patient had prior history of pyelonephritis treated with doxycycline. Currently denies dysuria, urgency, frequency, fever, chills or flank pain. No hematuria at home. Prior history of type 2 diabetes, chronic obstructive pulmonary disease (COPD), hypertension, anxiety, depression, osteoporosis, osteoarthritis, admitted for persistent diarrhea, acute kidney injury secondary to dehydration from volume loss. The patient will be admitted as an inpatient for two midnights, assigned to Dr. Dhaval Umanzor for the following issues. IMPRESSION: 1. Diarrhea. The patient has had chronic diarrhea from 08/24 until now. She has been treated for colitis at [facility] with two weeks of antibiotics and was readmitted for pyelonephritis, treated with doxycycline for about four days, who now presents with persistent diarrhea 5-6 during the day, and 2-3 times nightly. No weight loss. The patient denies any fever or chills at home. Has bilateral lower quadrant abdominal pain. No urinary tract symptoms. Denies fever , chills. No costovertebral angle tenderness during exam. Denies dysuria, urgency, frequency. Readmitted for persistent diarrhea, acute kidney injury and generalized weakness secondary to persistent volume loss. At this time, the patient will be checked with a gastrointestinal (GI) panel. She is at high risk of Clostridium (C.) difficile colitis due to recurrent readmissions to [facility] where she spent two weeks, and [facility] where she spent two days. The patient has never had a colonoscopy in the past, and if there is a negative GI panel, she may be started on Lomotil to decrease her volume loss and decrease electrolyte loss. Replace potassium and magnesium as needed, intravenous fluids for now, nothing by mouth status. She may need a colonoscopy to rule out microscopic or collagenous colitis if infectious diarrhea is negative. Workup for inflammatory bowel disease as well and check anti- cerevisiae antibody, anti-Saccharomyces cerevisiae antibody, antinuclear antibody test (ALMA), and W-dfrt-tnyqtijcmv cytoplasmic antibodies (P-ANCA). 2. Full supportive care for now. 3. History of pyelonephritis. Urine culture negative, but treated for urinary tract infection. Was discharged on doxycycline. The patient had been on antibiotics for colitis from [facility] since 08/24. Completed a two-week course, and recently, 09/10 to 09/12, completed two days of antibiotics at [facility] and two more days at home. Due to no complaints of dysuria, urgency, frequency, fever, chills or flank pain, the patient's antibiotics will be discontinued as the urine culture was negative during the previous admission. Monitor for ongoing symptoms and resume antibiotics if urine culture should be positive and patient develops symptoms. 4. Hyponatremia, most likely secondary to dehydration. Intravenous (IV) fluid hydration with normal saline. Repeat metabolic panel in the morning. 5. Acute kidney injury secondary to volume loss from persistent diarrhea. Continue with IV fluid hydration. Recheck numbers in the morning. 6. Headache. Most likely secondary to uncontrolled blood pressure. The patient is currently nothing by mouth. Will try to continue her metoprolol 50 mg if oral intake is still tolerated. If it is not, then we will given nitroglycerin paste topically or Catapres for blood pressure control while she is experiencing abdominal pain and persistent nausea and vomiting. At this time due to acute kidney injury, we will withhold the patient's hydrochlorothiazide and angiotension-converting enzyme (AGUILAR) inhibitor. 7. History of chronic obstructive pulmonary disease (COPD). No active wheezing at the bedside. Appears to be compensated. She is awake, alert, oriented times three. Does not appear to be lethargic or obtunded. No CO2 retention on clinical examination. Therefore, will continue with as needed nebulizer treatments. 8. Type 2 diabetes. Currently nothing by mouth with hypoglycemic protocol. Sliding scale every six hours. Will hold off on the patient's insulin until she resumes an oral intake. If the glucose is over 300, will restart 70/30 insulin at half the dose. Discontinue metformin for now while the patient has acute kidney injury. 9. Reflux. Will hold patient's Prilosec until she resumes oral intake. 10. Depression. Continue paroxetine once oral intake is improved. 11. Iron-deficiency anemia. Will continue ferrous sulfate once oral intake is resumed. 12. History of pyelonephritis. Currently asymptomatic. Will discontinue doxycycline unless symptoms resume. 13. Mild hydronephrosis. Bladder scan, Oliva to gravity. If significant residual , may benefit from Oliva catheter placement. If worsening creatinine despite fluid hydration and discontinuation of nephrotoxins, may need urology input. 14. Deep venous thrombosis (DVT) prophylaxis with Lovenox renal dosing. Addendum: per the family, patient,daughter and son-in-law will be relocating out of state in October: Medical records to be forwarded to patient's new physician at hospital discharge. Patient will be signed out to Dr. Dhaval Umanzor at 0700 09/14/16 0700 am. JOSEE
[2016-09-15] MEDS: GABAPENTIN 100 MG CAP PO SCH ×3 (00:06→20:43)
[2016-09-15] MEDS: NS 1,000 ML IV SCH ×2 (00:07→10:32)
[2016-09-15] MEDS: NITROGLYCERIN 2% OINT 1 GM *U/D* PKT TOP SCH ×3 (02:39→23:53)
[2016-09-15 06:00] VITALS: BP 160/68
[2016-09-15] MEDS: HumaLOG INSULIN (NovoLOG) PER UNIT SC SCH ×4 (06:34→18:36)
[2016-09-15] MEDS: cloNIDine 0.1 MG TAB PO SCH ×4 (06:34→23:32)
[2016-09-15 06:43] LABS: BASO % 0.5 % (0.0-1.0); EOS # 0.2 K/mm3 (0.0-0.50); EOS % 3.1 % (0.0-3.0); LARGE UNSTAINED CELL # 0.1 K/mm3 (0.0-0.4); LARGE UNSTAINED CELL % 1.3 % (0.0-4.0); LYMPH # 1.5 K/mm3 (1.5-4.5); LYMPH % 22.8 % (24.0-44.0); MEAN CORPUSCULAR HEMOGLOBIN 31.8 pg (27.0-33.0); MEAN CORPUSCULAR HGB CONC 32.8 g/dl (32.0-36.5); MEAN CORPUSCULAR VOLUME 96.9 fl (80.0-96.0); MONO # 0.5 K/mm3 (0.0-0.8); MONO % 7.4 % (0.0-5.0); NEUTROPHILS % 64.9 % (36.0-66.0); PLATELET COUNT, AUTOMATED 246 k/mm3 (150-450); RED CELL DISTRIBUTION WIDTH 13.4 % (11.5-14.5); WHITE BLOOD COUNT 6.1 K/mm3 (4.0-10.0)
[2016-09-15 07:08] LABS: CALCIUM LEVEL 8.5 MG/DL (8.8-10.2); CREATININE FOR GFR 1.01 MG/DL (0.55-1.02); POTASSIUM SERUM 4.1 MEQ/L (3.5-5.1)
[2016-09-15] MEDS ORDERED: PANTOPRAZOLE 40MG TAB (PROTONIX) PO SCH (09:00)
[2016-09-15] MEDS: PANTOPRAZOLE 40MG INJ (PROTONIX) (C9113) IV SCH (09:06)
[2016-09-15] MEDS: MULTIVITAMINS/MINERALS THERAP 1 TAB PO SCH (09:06)
[2016-09-15] MEDS: CETIRIZINE (ZyrTEC) 10 MG TAB PO SCH (09:06)
[2016-09-15] MEDS: LACTOBACILLUS ACIDOPHILUS CAP (BACID) PO SCH ×2 (09:07→20:43)
[2016-09-15] MEDS: FERROUS SULFATE 325MG TAB PO SCH (09:07)
[2016-09-15] MEDS: ASPIRIN 81 MG ENTERIC TAB PO SCH (09:07)
[2016-09-15] MEDS: PARoxetine 20 MG TAB PO SCH (09:08)
[2016-09-15] MEDS: CYANOCOBALAMIN 500 MCG TAB PO SCH (09:08)
[2016-09-15] MEDS ORDERED: LOPERAMIDE 2 MG CAP PO ONE (11:30)
[2016-09-15] MEDS ORDERED: LOPERAMIDE 2 MG CAP PO PRN (11:30)
[2016-09-15 14:00] VITALS: BP 112/56
--- NOTE | 2016-09-15 16:12 | IPNPDOC ---
Text Note Date of Service The patient was seen on 09/15/16. NOTE Subjective: Pt states she had one episode of watery diarrhea last night. No N/V/ Abd pain. Wants to eat. Objective: Vitals: (see below) General: No acute distress, laying comfortably in bed. HEENT: Moist mucous membranes. Neck: No JVD or lymphadenopathy Cardiac: RRR, No murmurs Pulm: Clear to auscultation b/l. No wheezing, rhonchi Abd: NT/ND + BS Ext: No edema or cyanosis Labs (see below) Images: Assessment/Plan 1. Persistent Diarrhea - ? related to Abx, which have been d/c. Treated for colitis/UTI in [place]. No abd pain/N/V/dysuria. Treated again for Pyelo on recent admission. Since patient asymptomatic, will hold off on Abx for now. Culture sent. ? microscopic workup vs IBD - will eventually need colonscopy. GI Panel negative. Imodium for now. Advance diet. 2. Hyponatremia - likely hypovolemic 2/2 diarrhea. improved on IVF. 3.AYLIN 2/2 pre-renal improved. 4. COPD - stable on nebs. 5. DM - cont insulin. Metformin d/c. 6. Depression on SSRI 7. Mild hydronephrosis - cont to monitor. If renal function worsens, consider gutierrez/urology consult, otherwise outpt f/u. DVT prophy: Lovenox VS,Fishbone, I+O VS, Fishbone, I+O Laboratory Tests 09/14/16 18:25 Red Blood Count 4.40, Mean Corpuscular Volume 97.9 H, Mean Corpuscular Hemoglobin 31.3, Mean Corpuscular Hemoglobin Concent 32.0, Red Cell Distribution Width 13.4, Neutrophils (%) (Auto) 63.6, Lymphocytes (%) (Auto) 26.5, Monocytes (%) (Auto) 5.8 H, Eosinophils (%) (Auto) 2.3, Basophils (%) ( Auto) 0.5, Neutrophils # (Auto) 4.2, Lymphocytes # (Auto) 1.9, Monocytes # (Auto ) 0.4, Eosinophils # (Auto) 0.2, Basophils # (Auto) 0.0 09/15/16 06:25 Red Blood Count 4.03, Mean Corpuscular Volume 96.9 H, Mean Corpuscular Hemoglobin 31.8, Mean Corpuscular Hemoglobin Concent 32.8, Red Cell Distribution Width 13.4, Neutrophils (%) (Auto) 64.9, Lymphocytes (%) (Auto) 22.8 L, Monocytes (%) (Auto) 7.4 H, Eosinophils (%) (Auto) 3.1 H, Basophils (%) (Auto) 0.5, Neutrophils # (Auto) 4.0, Lymphocytes # (Auto) 1.5, Monocytes # ( Auto) 0.5, Eosinophils # (Auto) 0.2, Basophils # (Auto) 0.0, Calcium Level 8.5 L Vital Signs Date Time Temp Pulse Resp B/P (MAP) Pulse Ox O2 Delivery O2 Flow Rate FiO2 09/15/16 14:00 98.1 59 18 112/56 (74) 95 09/15/16 06:00 Room Air I&O- Last 24 Hours up to 6 AM 09/15/16 06:00 Intake Total 0 ml Output Total 350 ml Balance -350 ml TERRI BOYCE MD September 15, 2016 16:12
[2016-09-15 18:33] VITALS: BP 138/67
[2016-09-15] MEDS ORDERED: HumaLOG INSULIN (NovoLOG) PER UNIT SC SCH (21:00)
[2016-09-15] MEDS ORDERED: METOPROLOL TART 50 MG TAB PO SCH (21:00)
[2016-09-15] MEDS ORDERED: METOPROLOL SUCC (TopROL XL) 50MG **XL** TAB PO SCH (21:00)
[2016-09-15 22:00] VITALS: BP 129/60
[2016-09-16] MEDS: NITROGLYCERIN 2% OINT 1 GM *U/D* PKT TOP SCH (03:03)
[2016-09-16 06:00] VITALS: BP 144/64
[2016-09-16] MEDS: cloNIDine 0.1 MG TAB PO SCH ×2 (06:18→11:50)
[2016-09-16 07:36] LABS: BASO % 0.5 % (0.0-1.0); EOS # 0.2 K/mm3 (0.0-0.50); EOS % 2.5 % (0.0-3.0); LARGE UNSTAINED CELL # 0.1 K/mm3 (0.0-0.4); LARGE UNSTAINED CELL % 1.5 % (0.0-4.0); LYMPH # 1.8 K/mm3 (1.5-4.5); MEAN CORPUSCULAR HEMOGLOBIN 31.2 pg (27.0-33.0); MEAN CORPUSCULAR VOLUME 97.3 fl (80.0-96.0); MONO # 0.4 K/mm3 (0.0-0.8); MONO % 6.3 % (0.0-5.0); NEUTROPHILS # 4.3 K/mm3 (1.8-7.7); NEUTROPHILS % 64.1 % (36.0-66.0); PLATELET COUNT, AUTOMATED 251 k/mm3 (150-450); RED CELL DISTRIBUTION WIDTH 13.7 % (11.5-14.5); WHITE BLOOD COUNT 6.7 K/mm3 (4.0-10.0)
[2016-09-16 07:37] LABS: CALCIUM LEVEL 8.6 MG/DL (8.8-10.2); CREATININE FOR GFR 1.21 MG/DL (0.55-1.02); GLOMERULAR FILTRATION RATE 45.5 (>32); POTASSIUM SERUM 4.2 MEQ/L (3.5-5.1)
[2016-09-16 08:00] VITALS: BP 107/53
[2016-09-16] MEDS ORDERED: PREVNAR 13 VACCINE SYRINGE (CPT CODE:90670) IM SCH (09:00)
[2016-09-16] MEDS ORDERED: LEVEMIR (INSULIN DETEMIR) 1 UNITS/0.01ML SC SCH (09:00)
--- NOTE | 2016-09-16 09:30 | REP ---
Urinary tract sonogram: History: Question pyelonephritis. Comparison: Comparison CT study abdomen pelvis September 14, 2016. Findings: Scanning at the level of the urinary bladder shows no abnormality. Renal cortical echogenicity pattern is normal bilaterally and contours are smooth. There is no evidence of hydronephrosis, cyst, mass, or calculus in either kidney. The right kidney measures 10.5 x 5.6 x 4.7 cm. There is an extrarenal pelvis configuration of the right kidney. There is no evidence of parker renal or intrarenal fluid collection to suggest abscess. Left renal dimensions are 10.2 x 5.5 x 5.7 cm. Impression: Normal urinary tract sonography. Signed by Heath Guzman MD 09/16/2016 09:22 A
[2016-09-16] MEDS: HumaLOG INSULIN (NovoLOG) PER UNIT SC SCH ×2 (10:03→12:00)
[2016-09-16] MEDS: GABAPENTIN 100 MG CAP PO SCH (10:04)
[2016-09-16] MEDS: MULTIVITAMINS/MINERALS THERAP 1 TAB PO SCH (10:04)
[2016-09-16] MEDS: PARoxetine 20 MG TAB PO SCH (10:04)
[2016-09-16] MEDS: ASPIRIN 81 MG ENTERIC TAB PO SCH (10:04)
[2016-09-16] MEDS: LACTOBACILLUS ACIDOPHILUS CAP (BACID) PO SCH (10:04)
[2016-09-16] MEDS: FERROUS SULFATE 325MG TAB PO SCH (10:04)
[2016-09-16] MEDS: PANTOPRAZOLE 40MG INJ (PROTONIX) (C9113) IV SCH (10:04)
[2016-09-16] MEDS: CYANOCOBALAMIN 500 MCG TAB PO SCH (10:05)
[2016-09-16] MEDS: CETIRIZINE (ZyrTEC) 10 MG TAB PO SCH (10:05)
[2016-09-16 11:30] VITALS: BP 130/61
[2016-09-16 11:50] VITALS: BP 130/61
--- NOTE | 2016-09-16 13:02 | DS.PDOC ---
Discharge Summary General Date of Admission September 14, 2016 at 20:43 Date of Discharge 09/16/16 Discharge Summary PROCEDURES PERFORMED DURING STAY: None. ADMITTING DIAGNOSES: 1. . Diarrhea DISCHARGE DIAGNOSES: 1. . Diarrhea COMPLICATIONS/CHIEF COMPLAINT: Diarrhea. HISTORY OF PRESENT ILLNESS: . 81-year-old female with a history significant for diabetes, hypertension, obesity, anxiety, depression, osteoporosis, osteoarthritis, chronic obstructive pulmonary disease (COPD), recently diagnosed and treated for pyelonephritis and urinary tract infection, colitis at [facility] and [facility] with previous admission on 09/10, discharged on 09/12/2016 presented to the ER with a chief complaint of diarrhea. The patient notes that she has been having 3-4 episodes of diarrhea daily and notes that she has also had associated nausea and vomiting ever since she was started on antibiotics. She describes the diarrhea as watery in nature, nonbloody, with no mucus, or any associated fevers, chills, or any other acute symptoms. The patient was admitted to the hospitalist service for further evaluation and management of her diarrhea. During hospitalization, the patient was kept off antibiotics. A GI panel was noted to be negative. The patient was treated with supportive management and antidiarrheals. A CT scan of the abdomen was ordered and revealed questionable worsening edema and inflammation of the right kidney suggestive of possible pyelonephritis. However, the patient denied any right flank pain, and she has remained afebrile, with a normal white blood cell count, and no complaints of any dysuria or increased urinary frequency. A renal ultrasound was ordered to follow-up on the studies of the CAT scan. The renal ultrasound revealed no acute findings. At this time, the patient states that she is feeling much better and that her diarrhea has resolved. She states that she is eager to return home now that she is finally feeling better. Physical therapy has cleared the patient to return home with her previous level of care. I've advised the patient to follow-up with her primary care physician within 7 days. In addition, I have advised the patient to return to the ER if her symptoms of diarrhea returned and or worsen. DISCHARGE MEDICATIONS: Please see below. ALLERGIES: Please see below. PHYSICAL EXAMINATION ON DISCHARGE: VITAL SIGNS: Please see below. GENERAL: Awake, alert, oriented HEENT: Normocephalic, atraumatic NECK: No JVD CARDIOVASCULAR EXAMINATION: Normal rate, normal rhythm RESPIRATORY EXAMINATION: Clear to auscultation bilaterally ABDOMINAL EXAMINATION: Soft, nontender, nondistended EXTREMITIES: No erythema, no tenderness LABORATORY DATA: Please see below. IMAGING: Urinary tract sonogram: History: Question pyelonephritis. Comparison: Comparison CT study abdomen pelvis September 14, 2016. Findings: Scanning at the level of the urinary bladder shows no abnormality. Renal cortical echogenicity pattern is normal bilaterally and contours are smooth. There is no evidence of hydronephrosis, cyst, mass, or calculus in either kidney. The right kidney measures 10.5 x 5.6 x 4.7 cm. There is an extrarenal pelvis configuration of the right kidney. There is no evidence of parker renal or intrarenal fluid collection to suggest abscess. Left renal dimensions are 10.2 x 5.5 x 5.7 cm. Impression: Normal urinary tract sonography. PROGNOSIS: Medically stable at this time ACTIVITY: As tolerated. DIET: . Carb consistent diet DISCHARGE PLAN: DISPOSITION: . Home with previous level of care DISCHARGE INSTRUCTIONS: 1. . Follow-up with primary care physician within one week 2. . Return to ER if symptoms return or worsen DISCHARGE CONDITION: Stable. TIME SPENT ON DISCHARGE: Greater than 30 minutes. Vital Signs/I&Os Vital Signs Date Time Temp Pulse Resp B/P (MAP) Pulse Ox O2 Delivery O2 Flow Rate FiO2 09/16/16 11:50 130/61 09/16/16 08:00 97.9 68 18 94 Room Air I&O- Last 24 Hours up to 6 AM 09/16/16 06:00 Intake Total 1560 ml Output Total 1550 ml Balance 10 ml Laboratory Data Labs 24H Laboratory Tests 2 09/15/16 16:42: Bedside Glucose (Misc Panel) 291H 09/15/16 20:28: Bedside Glucose (Misc Panel) 411H 09/16/16 06:58: White Blood Count 6.7, Red Blood Count 4.10, Hemoglobin 12.8, Hematocrit 39.9, Mean Corpuscular Volume 97.3H, Mean Corpuscular Hemoglobin 31.2, Mean Corpuscular Hemoglobin Concent 32.0, Red Cell Distribution Width 13.7, Platelet Count 251, Neutrophils (%) (Auto) 64.1, Lymphocytes (%) (Auto) 25.0, Monocytes ( %) (Auto) 6.3H, Eosinophils (%) (Auto) 2.5, Basophils (%) (Auto) 0.5, Neutrophils # (Auto) 4.3, Lymphocytes # (Auto) 1.8, Monocytes # (Auto) 0.4, Eosinophils # (Auto) 0.2, Basophils # (Auto) 0.0, Large Unclassified Cells % 1.5 , Large Unclassified Cells # 0.1, Anion Gap 8, Glomerular Filtration Rate 45.5, Blood Urea Nitrogen 16, Creatinine 1.21H, Sodium Level 136, Potassium Level 4.2 , Chloride Level 100, Carbon Dioxide Level 28, Calcium Level 8.6L 09/16/16 11:40: Bedside Glucose (Misc Panel) 372H CBC/BMP Laboratory Tests 09/16/16 06:58 Red Blood Count 4.10, Mean Corpuscular Volume 97.3 H, Mean Corpuscular Hemoglobin 31.2, Mean Corpuscular Hemoglobin Concent 32.0, Red Cell Distribution Width 13.7, Neutrophils (%) (Auto) 64.1, Lymphocytes (%) (Auto) 25.0, Monocytes (%) (Auto) 6.3 H, Eosinophils (%) (Auto) 2.5, Basophils (%) ( Auto) 0.5, Neutrophils # (Auto) 4.3, Lymphocytes # (Auto) 1.8, Monocytes # (Auto ) 0.4, Eosinophils # (Auto) 0.2, Basophils # (Auto) 0.0, Calcium Level 8.6 L FSBS Laboratory Tests Test 09/15/16 16:42 09/15/16 20:28 09/16/16 11:40 Range/Units Bedside Glucose (Misc Panel) 291 411 372 83-110 MG/DL Microbiology Microbiology 09/15/16 Gastrointestinal Tract Panel (PCR) - Final, Complete 09/14/16 Urine Culture - Final, Complete Discharge Medications Scheduled Aspirin (Aspir-81) 81 Mg Tab, 81 MG PO DAILY, (Reported) Cetirizine HCl (Cetirizine HCl) 10 Mg Tab, 10 MG PO DAILY, (Reported) Cyanocobalamin (Vitamin B12) 1,000 Mcg Tab, 1,000 MCG PO DAILY, (Reported) Diclofenac Sodium (Diclofenac Sodium Dr) 75 Mg Tab, 75 MG PO BID, (Reported) Ferrous Sulfate (Ferrous Sulfate) 325 Mg Tab, 325 MG PO DAILY, (Reported) Gabapentin (Gabapentin) 100 Mg Cap, 100 MG PO BID, (Reported) Hydrochlorothiazide (Hydrochlorothiazide) 50 Mg Tab, 50 MG PO DAILY, (Reported) Insulin Aspart Protamine/Aspar (Novolog Mix 70/30 Prefill (70-30) 100 Unit/ml) 1 Inj Inj, 50 UNITS SC BID, (Reported) Lactobacillus Acidophilus (Bacid) 1 Tab Tab, 1 TAB PO DAILY, (Reported) Losartan Potassium (Losartan Potassium) 50 Mg Tab, 50 MG PO DAILY, (Reported) Metformin Hydrochloride (Metformin HCl) 500 Mg Tab, 500 MG PO BID, (Reported) Metoprolol Succinate (Metoprolol Succinate ER) 50 Mg Tab, 50 MG PO QHS, ( Reported) Multivitamins *[facility] STOCKED* (Thera M Plus *[facility] STOCKED*) 1 Tab Tab, 1 TAB PO DAILY, (Reported) Omeprazole (Omeprazole) 40 Mg Cap, 40 MG PO DAILY, (Reported) Paroxetine Hydrochloride (Paxil) 40 Mg Tab, 40 MG PO DAILY, (Reported) Scheduled PRN Albuterol Sulfate (Ventolin Hfa) 200 Puff/8 Gm Aers, 2 PUFF INH Q4H PRN for SHORTNESS OF BREATH, (Reported) Albuterol Sulfate (Albuterol Sulfate) 2.5 Mg/3 Ml Nebu, 2.5 MG INH TID PRN for SHORTNESS OF BREATH, (Reported) Tramadol HCl (Tramadol HCl) 50 Mg Tab, 50 MG PO Q6HP PRN for PAIN, (Reported) Allergies Coded Allergies: Quinolones (Verified Allergy, Intermediate, [facility], 06/28/16) BENNETT GIRARD MD September 16, 2016 13:02
[2016-09-18 00:08] LABS: ANTI-SACCHAROMYCES CEREV. IgA 60.5 Units (0.0-24.9); ANTI-SACCHAROMYCES CEREV. IgG 28.5 Units (0.0-24.9)
== END 2016-09-16 13:45 | disposition home or self-care (01) | DRG 392 ==
LOC: M ED 18:08 → M ED INP 20:43 → M MS4PR 23:10
PROVIDERS: ADMIT General Practice; ATTEND Internal Medicine
DX: R19.7 Diarrhea, unspecified (principal); N17.9 Acute kidney failure, unspecified; E87.1 Hypo-osmolality and hyponatremia; N13.30 Unspecified hydronephrosis; E86.0 Dehydration; E11.9 Type 2 diabetes mellitus without complications; E66.9 Obesity, unspecified; I10 Essential (primary) hypertension; F41.9 Anxiety disorder, unspecified; J44.9 Chronic obstructive pulmonary disease, unspecified; F32.9 Major depressive disorder, single episode, unspecified; M81.0 Age-related osteoporosis without current pathological fracture; M19.90 Unspecified osteoarthritis, unspecified site; Z88.8 Allergy status to other drugs, medicaments and biological substances; Z87.891 Personal history of nicotine dependence; Z79.899 Other long term (current) drug therapy; Z79.82 Long term (current) use of aspirin; K21.9 Gastro-esophageal reflux disease without esophagitis; D50.9 Iron deficiency anemia, unspecified